=== PATIENT | female | born 1985 | race African-American/Black ===

== ENCOUNTER 2021-04-25 16:50 | Emergency (ER) | payer SELFPAY ==
[2021-04-25] MEDS ORDERED: Ketorolac Tromethamine 30 MG/ML VIAL ONE (18:41)
[2021-04-25] MEDS ORDERED: Diazepam 5 MG TAB ONE (18:41)
[2021-04-25] MEDS ORDERED: HYDROcodone/Acetaminophen 5/325 mg Tablet ONE (18:42)
== END 2021-04-25 19:37 | disposition home or self-care (01) ==
LOC: CSHERS 16:50
DX: M54.40 Lumbago with sciatica, unspecified side (principal); G89.29 Other chronic pain; J45.909 Unspecified asthma, uncomplicated; F17.210 Nicotine dependence, cigarettes, uncomplicated
CPT/HCPCS: 96372; 99283; J1885

== ENCOUNTER 2022-08-19 13:29 | Emergency (ER) | payer SELFPAY ==
[2022-08-19 16:02] LABS: Bilirubin Neg (Negative); Blood, Urine 10 (Negative); Clarity Cloudy (Clear); Glucose, Urine (Dipstick) Normal (Negative); Ketone, Urine Negative (Negative); Leukocyte Negative (Negative); Nitrite Negative (Negative); Protein, Urine (Dipstick) 15 mg/dl (Neg-Trace); Urobilinogen Normal mg/dL (Less than 2)
[2022-08-19 16:07] LABS: #Eosinphils 0.5 10x3/uL (0.0-0.5); #Monocytes 0.4 10x3/uL (0.0-1.1); #Neutrophils 7.2 10x3/uL (1.5-8.4); %Basophils 0.3 % (0.0-2.0); %Eosinophils 5.6 % (0.0-6.0); %Lymphocytes 13.7 % (18.0-47.0); %Monocytes 4.4 % (0.0-10.0); %Neutrophils 75.8 % (40.0-75.0); Hemoglobin 13.6 g/dL (12.0-15.5); Mean Corpuscular HGB CONC 32.5 g/dL (32.0-36.0); Mean Corpuscular Hemoglobin 28.3 pg (27.0-33.0); Mean Corpuscular Volume 86.9 fl (81.6-98.3); Mean Platelet Volume 9.1 fl (7.4-10.4); Platelet Count 485 10x3/uL (150-450); RBC Distribution Width 13.1 % (11.5-14.5); Red Blood Cell (RBC) Count 4.81 10x6/uL (3.90-5.03); White Blood Cell (WBC) Count 9.5 10x3/uL (3.5-10.5)
[2022-08-19] MEDS ORDERED: Ondansetron PF 4 MG/2 ML Vial ONE (16:09)
[2022-08-19 16:13] LABS: Bacteria/HPF None Seen HPF (None Seen); RBC/HPF 0-3 HPF (0-3); Squamous Epithelial 0-3 HPF (0-3); WBC/HPF 0-3 HPF (0-3)
[2022-08-19 16:15] LABS: ALT (SGPT) 16 U/L (8-55); AST (SGOT) 16 U/L (5-34); Albumin 3.9 g/dL (3.5-5.0); Alkaline Phosphatase 73 U/L (40-110); Anion Gap 11 mmol/L (10-20); BUN (Urea Nitrogen) 15 mg/dL (7.0-18.7); Calc. Creatinine Clearance 0 mL/min (70-130); Calcium 9.1 mg/dL (7.8-10.44); Carbon Dioxide 23 mmol/L (22-29); Chloride 109 mmol/L (98-107); Estimated GFR 95; Glucose 86 mg/dL (70-105); Lipase 16 U/L (8-78); Magnesium 1.8 mg/dL (1.6-2.6); Protein, Total 6.9 g/dL (6.0-8.3); Sodium 139 mmol/L (136-145)
[2022-08-19 17:58] LABS: SARS-CoV-2 NAA Rapid Test Not Detected (NotDetected)
[2022-08-19] MEDS ORDERED: Famotidine/PF 20 mg/2ml Vial ONE (18:18)
== END 2022-08-19 18:29 | disposition home or self-care (01) ==
LOC: CSHERS 13:29
DX: R11.2 Nausea with vomiting, unspecified (principal); R19.7 Diarrhea, unspecified; Z20.822 Contact with and (suspected) exposure to COVID-19; F17.210 Nicotine dependence, cigarettes, uncomplicated; F17.290 Nicotine dependence, other tobacco product, uncomplicated
CPT/HCPCS: 80053; 81003; 81015; 83690; 83735; 85025; 96361; 96374; 96375; J2405; S0028

== ENCOUNTER 2023-02-17 16:51 | Emergency (ER) | payer SELFPAY ==
[2023-02-17] MEDS ORDERED: Ketorolac Tromethamine 30 MG/ML VIAL ONE (18:40)
[2023-02-17] MEDS ORDERED: Cyclobenzaprine 10 MG TAB ONE (18:40)
== END 2023-02-17 19:05 | disposition home or self-care (01) ==
LOC: CSHERS 16:51
DX: M54.32 Sciatica, left side (principal); F17.210 Nicotine dependence, cigarettes, uncomplicated
CPT/HCPCS: 96372; 99283; J1885

== ENCOUNTER 2023-07-30 12:20 | Emergency (ER) | payer SELFPAY ==
[2023-07-30 13:22] LABS: SARS-CoV-2 NAA Rapid Test Not Detected (NotDetected)
[2023-07-30] MEDS ORDERED: Ibuprofen 200 MG TAB ONE (13:37)
== END 2023-07-30 13:40 | disposition home or self-care (01) ==
LOC: CSHERS 12:20
DX: J06.9 Acute upper respiratory infection, unspecified (principal); R11.0 Nausea; F17.210 Nicotine dependence, cigarettes, uncomplicated; F17.290 Nicotine dependence, other tobacco product, uncomplicated
CPT/HCPCS: 99283

== ENCOUNTER 2023-07-31 15:40 | Emergency (ER) | payer SELFPAY ==
[2023-07-31] MEDS ORDERED: Bicillin LA 1.2 MILLION UNITS/2 ML SYRINGE IM SCH (19:30)
[2023-07-31] MEDS ORDERED: Ketorolac Tromethamine 30 MG (1 mL) VIAL ONE (19:37)
[2023-07-31] MEDS ORDERED: Dexamethasone 4 MG TAB ONE (19:38)
== END 2023-07-31 19:44 | disposition home or self-care (01) ==
LOC: CSHERS 15:40
DX: J02.0 Streptococcal pharyngitis (principal); F17.290 Nicotine dependence, other tobacco product, uncomplicated; F17.210 Nicotine dependence, cigarettes, uncomplicated
CPT/HCPCS: 87430; 96372; 96374; J0561; J1885; J8540

== ENCOUNTER 2023-12-16 10:26 | Emergency (ER) | payer SELFPAY ==
[2023-12-16] MEDS ORDERED: Ketorolac Tromethamine 30 MG (1 mL) VIAL ONE (10:48)
[2023-12-16] MEDS ORDERED: Dexamethasone 10 MG/ML VIAL ONE (10:48)
[2023-12-16] MEDS ORDERED: cefTRIAXone (ROCEPHIN) 1 GM VIAL ONE (10:49)
[2023-12-16] MEDS ORDERED: Sterile Water 10 ML ONE (10:49)
== END 2023-12-16 10:54 | disposition home or self-care (01) ==
LOC: CSHERS 10:26
DX: J02.0 Streptococcal pharyngitis (principal); F17.290 Nicotine dependence, other tobacco product, uncomplicated
CPT/HCPCS: 96372; 99282; J0696; J1100; J1885

== ENCOUNTER 2025-03-28 10:19 | Emergency (ER) | payer SELFPAY ==
[2025-03-28] MEDS ORDERED: Ketorolac Tromethamine 30 MG (1 mL) VIAL ONE (10:56)
[2025-03-28] MEDS ORDERED: HYDROcodone/Acetaminophen 5/325 mg Tablet ONE (10:56)
[2025-03-28] MEDS ORDERED: Orphenadrine Citrate 60 MG/2 ML VIAL ONE (11:26)
== END 2025-03-28 11:57 | disposition home or self-care (01) ==
LOC: CSHERS 10:19
DX: M54.16 Radiculopathy, lumbar region (principal); F17.210 Nicotine dependence, cigarettes, uncomplicated; F17.290 Nicotine dependence, other tobacco product, uncomplicated
CPT/HCPCS: 96372; 99283; J1885; J2360